=== PATIENT | male | born 1970 ===

== ENCOUNTER 2018-07-17 09:17 | Outpatient (REF) | payer BC, SELFPAY ==
[2018-07-17 22:30] LABS: Cholesterol 204 mg/dL (50-200); HDL Cholesterol 31 mg/dL (40-60); LDL CHOLESTEROL 137 mg/dL (<100); TSH 1.02 uIU/mL (0.358-3.74); Triglyceride 237 mg/dL (30-150)
== END 2018-07-17 09:37 ==
LOC: NCHCN 09:17
PROVIDERS: Visit Provider Registered Nurse
DX: Z00.00 Encounter for general adult medical examination without abnormal findings (principal); R63.5 Abnormal weight gain; R53.83 Other fatigue
CPT/HCPCS: 80061; 83721; 84443

== ENCOUNTER 2024-03-12 21:20 | Outpatient (REF) | payer OTHER, SELFPAY ==
[2024-03-12 21:34] LABS: HGB 16.3 g/dL (13.5-17.5); MCH 29.4 pg (27.0-33.0); MCHC 33.3 % (32.0-36.0); MCV 88 fL (80-95); Platelet Count 171 10^3/uL (130-400); RBC 5.55 10^6/uL (4.36-5.78); RDW 12.4 % (11.8-14.1); RDW-SD 40.5 fL; WBC 4.44 10^3/uL (4.4-10.8)
[2024-03-12 22:05] LABS: ALT 66 U/L (16-63); AST 35 U/L (15-37); Albumin 4.4 g/dL (3.4-5.0); Alkaline Phosphatase 80 U/L (46-116); Anion Gap 8.2 mmol/L (3-11); BUN 20 mg/dL (7-18); Bilirubin, Total 1.28 mg/dL (0.2-1.0); CO2 27.8 mmol/L (21.0-32.0); CREATININE 1.2 mg/dL (0.70-1.30); Calcium 9.1 mg/dL (8.5-10.1); Calculated LDL 129 mg/dL (<100); Chloride 104 mmol/L (98-107); Cholesterol 203 mg/dL (<200); Estimated GFR 71.42 (mL/min/1.73m2); Glucose 101 mg/dL (74-106); HDL Cholesterol 36 mg/dL (40-60); Potassium 4.6 mmol/L (3.5-5.1); Sodium 140 mmol/L (136-145); TSH (W/Ref FT4) 1.11 uIU/mL (0.36-3.74); Triglyceride 193 mg/dL (<150)
[2024-03-13 20:52] LABS: PSA, Screening 0.6 ng/mL (<=3.5)
== END 2024-03-12 21:21 | disposition home or self-care (01) ==
LOC: NCHCN 21:20
PROVIDERS: PCP Family Medicine; Visit Provider Family Medicine
DX: Z13.29 Encounter for screening for other suspected endocrine disorder (principal); Z13.0 Encounter for screening for diseases of the blood and blood-forming organs and certain disorders involving the immune mechanism; Z13.220 Encounter for screening for lipoid disorders; Z13.228 Encounter for screening for other metabolic disorders; Z12.5 Encounter for screening for malignant neoplasm of prostate
CPT/HCPCS: 80053; 80061; 84153; 85027; 84443